=== PATIENT | male | born 1955 | race Two or more races ===

== ENCOUNTER → 2024-03-05 | Outpatient (CLI) | payer OTHER, MEDICAID, SELFPAY ==
[2024-03-05 11:44] LABS: Prostate Specific Antigen 1.29 ng/mL (0-4.00)
== END | disposition home or self-care (01) ==
PROVIDERS: PCP Nurse Practitioner Family; Referring Provider Urology; Visit Provider Urology
DX: N40.1 Benign prostatic hyperplasia with lower urinary tract symptoms (principal)
CPT/HCPCS: 36415; 84153

== ENCOUNTER → 2024-03-05 | Outpatient (BNVA) | payer OTHER, MEDICAID, SELFPAY | END | disposition home or self-care (01) | PROVIDERS: PCP Physician Assistant; Referring Provider Physician Assistant; Visit Provider Urology | DX: N40.1 Benign prostatic hyperplasia with lower urinary tract symptoms (principal); N13.8 Other obstructive and reflux uropathy; R39.15 Urgency of urination; R35.1 Nocturia | CPT/HCPCS: 81003; 99212; G0463 ==

== ENCOUNTER → 2024-04-09 | Outpatient (BNVA) | payer OTHER, MEDICAID, SELFPAY | END | disposition home or self-care (01) | PROVIDERS: PCP Physician Assistant; Referring Provider Physician Assistant; Visit Provider Urology | DX: N40.1 Benign prostatic hyperplasia with lower urinary tract symptoms (principal); R39.12 Poor urinary stream | CPT/HCPCS: 51741; 51798 ==

== ENCOUNTER → 2024-04-28 | Outpatient (CLI) | payer OTHER, MEDICAID, SELFPAY ==
--- NOTE | 2024-04-28 14:00 | XR_ITS ---
Examination: PA lateral chest 2 views Technique: Upright PA lateral chest 2 views Exam date and time: April 28, 2024 1411 hrs. Indications: Chest and back pain beginning 4 days ago Findings: No significant cardiac enlargement Ectatic thoracic aorta No pneumonia or pulmonary edema Moderate osteopenia Minor atelectasis in the right middle lobe on the lateral view Impression: Minor atelectasis in the right middle lobe on the lateral view
== END | disposition home or self-care (01) ==
LOC: CDIM 13:47
PROVIDERS: PCP Physician Assistant; Referring Provider Physician Assistant; Visit Provider Physician Assistant
DX: J98.11 Atelectasis (principal)
CPT/HCPCS: 71046

== ENCOUNTER → 2024-05-04 | Outpatient (BNVA) | payer OTHER, MEDICAID, SELFPAY | END | disposition home or self-care (01) | PROVIDERS: PCP Physician Assistant; Referring Provider Physician Assistant; Visit Provider Urology | DX: N40.1 Benign prostatic hyperplasia with lower urinary tract symptoms (principal); N13.8 Other obstructive and reflux uropathy; I10 Essential (primary) hypertension; M79.7 Fibromyalgia | CPT/HCPCS: 76872 ==

== ENCOUNTER → 2024-05-26 | Outpatient (CLI) | payer OTHER, MEDICAID, SELFPAY ==
--- NOTE | 2024-05-26 14:00 | XR_ITS ---
Examination: CT chest, without intravenous contrast. Sagittal and coronal 2-D reconstructions. Exam date and time: May 26, 2024 1439 hours INDICATIONS: Diagnosis aortic ectasia unspecified chest discomfort 3 years CTDI:vol (mGy) 15.2 DLP: (mGycm) 538 Technique: Multiple 3.0 mm axial sections of the chest to been obtained. Bone and lung density settings are obtained. Sagittal and coronal 2-D reconstructions have been obtained. Low dose protocols were performed. One or more of the following dose reduction techniques were used; automated exposure control, adjustment of the mA and/or KV according to patient size, use of iterative reconstruction technique. Findings: 10 mm right thyroid nodule No thoracic aortic enlargement or significant ectasia Pulmonary artery segments are not enlarged Heavy calcification left anterior descending coronary artery No paratracheal tracheobronchial or bronchopulmonary adenopathy No pneumonia or pulmonary edema or pleural disease No visualized liver or splenic lesion No pancreatic mass IMPRESSION: 10 mm right thyroid nodule Negative for thoracic aortic aneurysm or ectasia
== END | disposition home or self-care (01) ==
LOC: CCTX 13:59
PROVIDERS: Referring Provider Nurse Practitioner Family; Visit Provider Nurse Practitioner Family
DX: E04.1 Nontoxic single thyroid nodule (principal)
CPT/HCPCS: 71250

== ENCOUNTER → 2024-06-08 | Outpatient (CLI) | payer OTHER, MEDICAID, SELFPAY ==
--- NOTE | 2024-06-08 | XR_ITS ---
Examination: Bone densitometry Date and time of exam:June 08, 2024 1324 hours INDICATIONS: 69-year-old male with diagnosis age related osteoporosis, family history mother hip fracture or osteoporosis, personal history rheumatoid arthritis Technique: Lumbar spine and hip total bone mineralization values of an calculated. Peak reference and age match control results have been displayed. Findings: Lumbar spine total bone mineralization is0.867 gm/cm2. This is 2.0 standard deviations below peak reference. This is 1.2 standard deviations below age-matched controls. Hip total bone mineralization is 0.897 gm/cm2 This is 1.2 standard deviations below peak reference. This is 0.6 standard deviations below age-matched controls Impression: There is osteopenia based on lumbar spine measurements. There is osteopenia based on hip measurements
== END | disposition home or self-care (01) ==
LOC: CDIM 12:45
PROVIDERS: PCP Nurse Practitioner Family; Referring Provider Nurse Practitioner Family; Visit Provider Nurse Practitioner Family
DX: M85.89 Other specified disorders of bone density and structure, multiple sites (principal)
CPT/HCPCS: 77080

== ENCOUNTER → 2024-06-19 | Outpatient (CLI) | payer OTHER, MEDICAID, SELFPAY ==
--- NOTE | 2024-06-19 13:30 | XR_ITS ---
Examination: Thyroid sonography complete TECHNIQUE: Grayscale sonographic images thyroid lobes are carful analysis Exam date and time: June 19, 2024 1402 hours INDICATIONS: 10 mm right thyroid nodule on CT chest examination May 26, 2024. FINDINGS: Right thyroid 4.6 x 2.1 x 1.4 cm Lower pole nodule 5 x 4 mm, 15 x 13 mm Left thyroid 4.1 x 1.8 x 1.7 cm Upper pole cyst 3 x 2 mm IMPRESSION: Right thyroid lower pole nodules as above Consider ultrasound-guided fine-needle aspiration of the vascular lower pole right thyroid nodule 15 x 11 x 13 mm
== END | disposition home or self-care (01) ==
PROVIDERS: PCP Physician Assistant; Referring Provider Physician Assistant; Visit Provider Physician Assistant
DX: E04.2 Nontoxic multinodular goiter (principal)
CPT/HCPCS: 76536

== ENCOUNTER → 2024-08-07 | Outpatient (CLI) | payer OTHER, MEDICAID, SELFPAY ==
[2024-08-06 13:12] LABS: Partial Thromboplastin Time 25.6 Seconds (22.0-36.0); Prothrombin Time 11.2 Seconds (9.0-12.2)
--- NOTE | 2024-08-07 08:00 | XR_ITS ---
Examination: Ultrasound-guided fine needle percutaneous aspiration thyroid nodule, right. Thyroid sonography, limited Exam date and time: 08/07/2024, 8:50 AM. Technique: A timeout was completed verifying correct patient, procedure, site, positioning and special equipment if applicable. The patient was placed in supine position for the thyroid fine needle percutaneous aspiration The patient's right neck neck was prepped and draped in sterile fashion. Maximum barrier sterile technique, hand hygiene, ultrasound sterile technique. 1% lidocaine was used to anesthetize the skin and subcutaneous tissues to the patient's right thyroid nodule. Multiple fine needle aspirations were performed using 25-gauge needles and multiple thyroid specimens placed in preservative according to the [facility] protocol. Specimens appears satisfactory. The attending radiologist was present for the entire procedure. Estimated blood loss 3 cc. The patient tolerated the procedure well and there were no complications. Impression: Successful ultrasound-guided fine-needle percutaneous aspiration thyroid nodule, right.
== END | disposition home or self-care (01) ==
PROVIDERS: Radiology Diagnostic Radiology; PCP Nurse Practitioner Family; Referring Provider Nurse Practitioner Family; Visit Provider Nurse Practitioner Family
DX: E07.89 Other specified disorders of thyroid (principal); Z01.812 Encounter for preprocedural laboratory examination
CPT/HCPCS: 10005; 36415; 85025; 85610; 85730

== ENCOUNTER → 2024-08-10 | Outpatient (BNVA) | payer OTHER, MEDICAID, SELFPAY | END | disposition home or self-care (01) | PROVIDERS: PCP Physician Assistant; Referring Provider Physician Assistant; Visit Provider Urology | DX: N40.1 Benign prostatic hyperplasia with lower urinary tract symptoms (principal); N13.8 Other obstructive and reflux uropathy; I10 Essential (primary) hypertension; E66.9 Obesity, unspecified; Z68.32 Body mass index [BMI] 32.0-32.9, adult | CPT/HCPCS: 81003; 99212; G0463 ==

== ENCOUNTER 2024-08-13 22:36 | Emergency (ER) | payer OTHER, MEDICAID, SELFPAY ==
[2024-08-13 22:37] VITALS: BMI 33.3
[2024-08-13 22:50] VITALS: BP 130/80; PULSE 68; RESP 18; TEMP 36.8; O2SAT 97
--- NOTE | 2024-08-13 23:03 | XR_ITS ---
Examination: Knee, left 3 views Technique: AP oblique lateral left knee 3 views Exam date and time: August 13, 2024 11:22 PM Indications: Patient fell today with injury to the knee, knee pain. Findings: No acute fracture No dislocation No foreign body Impression: No acute fracture
--- NOTE | 2024-08-13 23:03 | XR_ITS ---
Examination: Tibia-Fibula, left , 2 views Technique: Tibia-fibula AP lateral 2 views Date and time of exam: July at 19 hours Indications: Patient fell today with injury to the lower leg, left lower leg pain Findings: No fracture or dislocation No foreign body Impression: No fracture or dislocation
[2024-08-14] MEDS: cephALEXin 250 MG CAPSULE 500 MG PO
[2024-08-14] MEDS: DIPHTH,PERTUSS(ACELL),TET VAC 0.5 ML SYR- ADULT IMi
--- NOTE | 2024-08-14 03:21 | EDNOTE_ITS ---
Lower Extremity Injury RME/HPI General Chief Complaint: Fall Stated Complaint: FALL, LEFT LEG PAIN AND LACERATIONS Time Seen by Provider: 08/13/24 23:02 Arrival date/time: 08/13/24 22:36 69M with history of HTN presents to ED with LLE pain and laceration after trip and fall forward. Patient denies hitting head, neck, chest, ab, and back, as well as dizziness, N/V, AMS, seizures, and vision changes. Patient has not had a tetanus shot in the past 5 years. Limitations: no limitations Related Data Home Medications ?Medication ?Instructions ?Recorded ?Confirmed alfuzosin 10 mg tablet,extended 10 mg PO QDAY 10/10/17 08/10/24 release 24 hr acetaminophen 650 mg 2 tab PO Q8HR PRN Pain 11/2908/10/24 tablet,extended release (Arthritis Pain Relief (acetaminophen) ER) Held on 11/30/21. Instructions: Resume on 12/07/21. yvefbqv-qrslmetrcsjnl-nmdcaqcp 250 1 tab PO Q6H PRN mi graine 11/29/21 08/10/24 mg-250 mg-65 mg tablet (Excedrin Migraine) azelastine 0.05 % eye drops 1 drp ophthalmic (eye) QDA Y 11/29/21 08/10/24 fluticasone propionate 50 1 ea intranasal QDAY 2 08/10/24 mcg/actuation nasal spray,suspension gabapentin 400 mg capsule 1 cap PO TID 11/29/21 alfuzosin 10 mg tablet,extended 10 mg PO QDAY 08/10/24 08/10/24 release 24 hr (Uroxatral) famotidine 40 mg tablet 40 mg PO QDAY 08/10/2408/10 Previous Rx's ?Medication ?Instructions ?Recorded cephalexin 500 mg capsule 500 mg PO TID 7 days #21 cap s 08/14/24 Allergies Allergy/AdvReac Type Severity Reaction Status Date / Time No Known Allergies Allergy Verified 08/13/24 22:37 Review of Systems Review of Systems Systems Reviewed: All systems reviewed, normal except as documented Constitutional Constitutional: Reports system reviewed and no additional complaints, except as documented, Denies fever(s) and Denies headache(s) ENT Ears, Nose, Mouth, and Throat: Denies disequilibrium and Denies headache(s) Cardiovascular Cardiovascular: Reports system reviewed and no additional complaints, except as documented, Denies chest pain and Denies dyspnea Respiratory Respiratory: Reports system reviewed and no additional complaints, except as documented, Denies cough and Denies dyspnea Gastrointestinal Gastrointestinal: Reports system reviewed and no additional complaints, except as documented, Denies abdominal pain, Denies nausea and Denies vomiting Musculoskeletal Musculoskeletal: Reports as per HPI and Reports arthralgias Integumentary/Breasts Skin/Breast: Reports as per HPI and Reports skin pain Neurologic Neurologic: Reports system reviewed and no additional complaints, except as documented, Denies confusion, Denies disequilibrium and Denies headache(s) Psychiatric Psychiatric: Denies confusion Past Medical History Past Medical History NEUROLOGIC: Positive Neurological Disorders and Migraine; Negative Seizures CARDIAC: Positive Hypertension; Negative Cardiac Disorders or Congestive Heart Failure RESPIRATORY: Negative Chronic Obstructive Pulmonary Disease (COPD) GASTROINTESTINAL: Positive Gastrointestinal Disorders and Hiatal Hernia (RIGHT INGUINAL HERNIA); Negative Hepatitis GENITOURINARY: Positive Genitourinary Disorders and Benign Prostatic Hyperplasia; Negative Renal Disease MUSCULOSKELETAL: Positive Fibromyalgia; Negative Musculoskeletal Disorders ENDOCRINE: Negative Endocrine Disorders, Diabetes Mellitus Type 1 or Diabetes Mellitus Type 2 HEMATOLOGIC: Negative Blood Disorders OTHER HISTORY: Negative Hospitalization, Autoimmune Disease, Shingles, Falls, Blood Transfusions, Blood Transfusion Reaction, Anesthesia Reactions, Chemotherapy, Radiation Therapy, MRSA, VRSA, Chicken Pox, Measles, Mumps or Cancer Family History FAMILY HISTORY: Positive Family Cardiac Disorders (HTN, CHOLESTEROL); Negative Family Psychiatric Problems, Family Respiratory Disorders, Family Gastrointestinal Problems, Family Cancer, Family Surgery (HERNIA REPAIR) or Family Anesthesia Reaction Surgical History SURGICAL: Positive Abdominal Surgery; Negative Cardiac Surgery, Endocrine Surgery or Ear Surgery Social History SMOKING STATUS: Never smoker ED Exam General Limitations: Present no limitations General appearance: Present alert and in no apparent distress Head Head exam: Present atraumatic Eye Eye exam: Present normal appearance, PERRL and EOMI ENT ENT exam: Present normal exam, normal oropharynx and mucous membranes moist Neck Neck exam: Present normal inspection, full ROM and trachea midline Chest Chest inspection: Present normal inspection and symmetric chest wall rise Respiratory Respiratory exam: Present normal lung sounds bilaterally Cardiovascular Cardiovascular exam: Present regular rate, normal rhythm and normal heart sounds Abdominal Exam Abdominal exam: Present soft and normal bowel sounds Extremities Exam Extremities exam: Present full ROM Expanded Lower Extremity Exam Lower leg exam: Present full ROM (L), tenderness and abrasion Back Exam Back exam: Present normal inspection and full ROM Neurological Exam Neurological exam: Present alert, oriented X3 and CN II-XII intact Psychiatric Psychiatric exam: Present normal affect and normal mood Skin Skin exam: Present warm, dry, intact and normal color Course Quality Measures none Orders Category Date Time Status Crutches .NOW Care 08/14/24 00:28 Completed Wound Care NOW Care 08/13/24 23:03 Completed XR knee LT 3V Stat Exams 08/13/24 23:03 Completed XR tibia fibula LT 2V Stat Exams 08/13/24 23:03 Completed TET,DIP/PERT AC (Adult)-Tdap [Boostrix Adult (Tdap) Med 08/13/24 23:03 Discontinued Vacc] 0.5 ml IMI .ONCE ONE cephALEXin [Keflex] Med 08/13/24 23:41 Discontinued 500 mg PO X1 ONE Vital Signs Vital signs: Vital Signs Temperature 98.2 F 08/13/24 22:50 Pulse Rate 68 08/13/24 22:50 Respiratory Rate 18 08/13/24 22:50 Blood Pressure 130/80 08/13/24 22:50 Pulse Oximetry (%) 97 08/13/24 22:50 Oxygen Delivery Method Room Air 08/13/24 22:50 O2 at 97% on RA and WNLs Extremity Injury, Lower MDM Narrative MDM Narrative:: 69M with history of HTN presents to ED with LLE pain and laceration after trip and fall forward. Patient denies hitting head, neck, chest, ab, and back, as well as dizziness, N/V, AMS, seizures, and vision changes. Patient has not had a tetanus shot in the past 5 years. Physical exam reveals 2 skin abrasions/partial avulsions on LLE with surrounding redness and bruising. Some tenderness. Normal WOB. Patient is afebrile, calm, and alert. XR no fx. Wounds cleaned/irrigated and bandaged. Tdap and ABX given. Patient data External records reviewed:: [facility] previous records Clinical information provided by:: patient Social determinants that could affect healthcare access:: none Patient has the following chronic illnesses:: HTN How is presenting disease/condition affected by chronic disease/condition?: uneffected by Evaluation data The following diagnostics were reviewed and interpreted by me:: radiology exam(s) Lab and/or radiology exams considered but not ordered:: ordered Interpretation Summary: above Medications / Prescriptions Medications or Prescriptions considered but not ordered:: ordered Medication administrations:: Medication Administration History Discontinued Medications Cephalexin HCl (Cephalexin 250 Mg Capsule) 500 mg PO X1 ONE Stop: 08/13/24 23:42 Last Admin: 08/14/24 00:00 Dose: 500 mg Documented By: KAYLA Diphtheria/Tetanus/Acell Pertussis (Diphth,Pertuss(Acell),Tet Vac 0.5 Ml Syr- Adult) 0.5 ml IMi .ONCE ONE Stop: 08/13/24 23:04 Last Admin: 08/14/24 00:00 Dose: 0.5 ml Documented By: KAYLA above Consultations Consultation(s) initiated? (list below): No Diagnosis Extremity Injury, Lower Differential Diagnosis: ankle sprain and strain, acute internal derangement of knee, puncture wound of foot, fracture of toe, ankle fracture and other (contusion of soft tissue and skin tear) Most likely diagnosis given after review of the tests above:: contusion of soft tissue and skin tear Admission Indicated Admission indicated?: not indicated Admission Request Was there a request for admission?: No Disposition Plan Disposition Plan: Discharge Discharge Attestation Discharge Attestation: The patient and all family members were given an opportunity to ask questions and understood the discharge instructions. Discharge instructions specifically effects, indications for sooner follow up or return to the emergency department, and the expected course of current diagnosis. Patient condition: Stable Discharge Plan Plan Patient Disposition: HOME (Self Care) Disposition Comment: Stable Prescriptions/Referrals Prescriptions/Med Rec: New cephalexin 500 mg capsule 500 mg PO TID 7 Days Qty: 21 0RF No Action alfuzosin 10 mg tablet extended release 24 hr 10 mg PO QDAY famotidine 40 mg tablet 40 mg PO QDAY alfuzosin [Uroxatral] 10 mg tablet extended release 24 hr 10 mg PO QDAY Rx Instructions: administer after the same meal each day azelastine 0.05 % drops 1 drp OPHTHALMIC (EYE) QDAY Patient Comments: INSTILL 1 DROP INTO AFFECTED EYE(S) twice a day if needed for allergies gabapentin 400 mg capsule 1 cap PO TID Patient Comments: take 1 capsule by mouth three times a day acetaminophen [Arthritis Pain Relief (acetam)] 650 mg tablet extended release 2 tab PO Q8HR PRN (Reason: Pain) Patient Comments: take 2 tablets by mouth every 8 hours if needed for pain fluticasone propionate 50 mcg/actuation spray,suspension 1 ea INTRANASAL QDAY Patient Comments: instill 1 spray into each nostril once daily Excedrin Migraine 250-250-65 mg Tablet 1 tab PO Q6H PRN (Reason: migraine) Problem List Clinical Impression: Skin tear, Contusion of soft tissue Patient/Caregiver Discharge Instructions Education Materials: ED Contusion, Lower Extremity, ED Skin Avulsion Additional Instructions: Please follow-up with PCP within 24-48 hours and return immediately if symptoms worsen. If problem persists, recommend outpatient PT and/or MRI follow-up. In the meantime, rest, use ice/heat, and/or compression. Print Language: Namibian Stand Alone Forms: Patient Portal Info Letter JESS/ALEKSANDRA Supervising Physician JESS/ALEKSANDRA Supervising Physician: Dr. Yuan
== END 2024-08-14 00:52 | disposition home or self-care (01) ==
LOC: SERX 08-14 00:18
PROVIDERS: Emergency Provider Emergency Medicine; PCP Family Medicine
DX: S81.802A Unspecified open wound, left lower leg, initial encounter (principal); W01.0XXA Fall on same level from slipping, tripping and stumbling without subsequent striking against object, initial encounter; Z23 Encounter for immunization
CPT/HCPCS: 73562; 73590; 90471; 90715; 99283; A9270

== ENCOUNTER → 2024-09-01 | Outpatient (CLI) | payer OTHER, MEDICAID, SELFPAY ==
--- NOTE | 2024-09-01 07:00 | XR_ITS ---
Exam: MRI knee without contrast, left INDICATIONS: Patient fell August 13, 2024 with injury to the knee, persistent knee pain Date and time of exam: September 01, 2024 0802 hours Technique: Multiple axial, coronal, and sagittal sections on the knee have been obtained. T2-Weighted sagittal, fat-suppressed images, TR 3,500, TE 62, T2 weighted coronal fat-saturated images, TR 3,500, TE 62 Proton density sagittal sections, TR 1800, TE 31. T-1 weighted coronal images, TR 524, TE 13.0 Findings: Medial meniscus anterior horn intact. Medial meniscus, body intra substance degeneration. Posterior horn medial meniscus intrasubstance degeneration. Lateral meniscus anterior horn horizontal linear tear Lateral meniscus, body is intact Posterior horn lateral meniscus horizontal linear tear communicating inferior articular surface near the inner margin Anterior cruciate ligament moderate sprain. Posterior cruciate ligament appears intact. Knee effusion is small. Quadriceps and patellar tendons appear intact. There is no evidence of tendinosis. Inflammatory change or fracture of Hoffa's fat pad is not seen. Medial patellar facet demonstrates severe thinning. Lateral patellar facet cartilage demonstrates severe thinning. Trochlear cartilage demonstrates severe thinning. Marrow signal adequate. Medial collateral ligament appears intact. No meniscocapsular separation is seen. Illiotibial band and fibular collateral ligament are intact. Biceps femoris tendons appear intact. Medial femoral condylar articular cartilage demonstrates severe thinning. Lateral femoral condylar articular cartilage demonstratessevere thinning. Tibial plateau cartilage demonstrates severe thinning. Impression: Intrasubstance degeneration body and posterior horn medial meniscus Tears of the lateral meniscus as above Moderate sprain anterior cruciate ligament
--- NOTE | 2024-09-01 07:30 | XR_ITS ---
Examination: MRI left lower leg, without contrast Date and time of exam: September 01, thousand 25, 0802 hours INDICATIONS: Injury to the lower leg after fall August 13, 2024 with persistent leg pain Technique: Multiple axial sagittal and coronal images of the left lower leg have been obtained with the Siemens high-resolution 1.5 Sheila MRI scanner. Images obtained include T2-weighted fat-suppressed sagittal sections, TR 3500, TE 46, T2 weighted coronal fat suppressed images, TR 3050, TE 84, T2-weighted transverse fat suppressed images, TR 3260, TE 63, proton density transverse images, TR 4720 TE 46, and T1 weighted coronal images, TR 560, TE 13. Findings: No occult fracture bone contusion or marrow edema Cortex of the tibia and fibula intact Achilles tendon appears intact No muscle hemorrhage Plantaris tendon tendon is intact IMPRESSION: No occult fracture, bone contusion, marrow edema or avascular necrosis
== END | disposition home or self-care (01) ==
LOC: SMRI 07:27
PROVIDERS: Referring Provider Nurse Practitioner Family; Visit Provider Nurse Practitioner Family
DX: S83.282A Other tear of lateral meniscus, current injury, left knee, initial encounter (principal); S83.512A Sprain of anterior cruciate ligament of left knee, initial encounter; M23.322 Other meniscus derangements, posterior horn of medial meniscus, left knee; M23.332 Other meniscus derangements, other medial meniscus, left knee; W19.XXXA Unspecified fall, initial encounter
CPT/HCPCS: 73718; 73721

== ENCOUNTER → 2024-09-10 | Outpatient (CLI) | payer OTHER, SELFPAY ==
--- NOTE | 2024-09-10 14:51 | XR_ITS ---
Examination: Tibia-Fibula, left , 2 views Technique: Tibia-fibula AP lateral 2 views Date and time of exam: September 10, 2024 1511 hours INDICATIONS: Patient fell yesterday with injury to the lower leg, lower leg pain. FINDINGS: No fracture or dislocation No foreign body IMPRESSION: No fracture or dislocation
== END | disposition home or self-care (01) ==
PROVIDERS: PCP Family Medicine; Referring Provider Nurse Practitioner Family; Visit Provider Nurse Practitioner Family
DX: S81.802D Unspecified open wound, left lower leg, subsequent encounter (principal); W19.XXXD Unspecified fall, subsequent encounter
CPT/HCPCS: 73590

== ENCOUNTER → 2024-09-22 | Outpatient (CLI) | payer OTHER, SELFPAY ==
--- NOTE | 2024-09-22 15:21 | XR_ITS ---
Termination: Ultrasound soft tissue extremity right leg TECHNIQUE: Grayscale sonographic images soft tissue right leg Date and time: September 22, 2024 1526 hours INDICATIONS: Patient fell 6 weeks ago with lump in the right calf FINDINGS: Cystic area at the area concern upper calf 9 x 6 x 6 mm IMPRESSION: Findings consistent with small hematoma in the soft tissue at the area concern Consider MRI lower leg without contrast follow-up
== END | disposition home or self-care (01) ==
PROVIDERS: PCP Family Medicine; Referring Provider Nurse Practitioner Family; Visit Provider Nurse Practitioner Family
DX: S89.91XA Unspecified injury of right lower leg, initial encounter (principal); W19.XXXA Unspecified fall, initial encounter
CPT/HCPCS: 76882

== ENCOUNTER 2024-10-08 08:12 | Outpatient (AMB) | payer OTHER, SELFPAY ==
[2024-10-08 08:36] VITALS: BP 108/70; PULSE 68; RESP 18; TEMP 36.3; O2SAT 96; BMI 33.0
--- NOTE | 2024-10-08 08:36 | ORTHONT_ITS ---
Vital signs 10/08/24 08:36 Height 1.65 m Height Method Stated Weight 89.953 kg Weight Measurement Method Standing Scale BMI 33.0 BP 108/70 Blood Pressure Source Automatic Cuff Blood Pressure Location Right Upper Arm Position Sitting Respiration 18 Pulse 68 Pulse Source Monitor Temp 97.3 F Temp Source Temporal Artery Scan Pulse Oximetry (%) 96 Oxygen Delivery Method Room Air Med/Allergies Allergies & Medications Allergies No Known Allergies Allergy (Verified 10/08/24 08:37) Medication Reconciliation acetaminophen 650 mg tablet,extended release (Arthritis Pain Relief (acetaminophen) ER) 2 tab PO Q8HR PRN Pain 11/29/21 [History Confirmed 10/08/24] Held on 11/30/21. Instructions: Resume on 12/07/21. azhusct-npkwsiupngdtc-rvmkwieu 250 mg-250 mg-65 mg tablet (Excedrin Migraine) 1 tab PO Q6H PRN migraine 11/29/21 [History Confirmed 10/08/24] fluticasone propionate 50 mcg/actuation nasal spray,suspension 1 ea intranasal QDAY 11/29/21 [History Confirmed 10/08/24] gabapentin 400 mg capsule 1 cap PO TID 11/29/21 [History Confirmed 10/08/24] famotidine 40 mg tablet 40 mg PO QDAY 08/10/24 [History Confirmed 10/08/24] atorvastatin 40 mg tablet 40 mg PO QDAY 10/08/24 [History Confirmed 10/08/24] meloxicam 7.5 mg tablet 7.5 mg PO QDAY #45 tabs 10/08/24 [Rx] montelukast 10 mg tablet 10 mg PO QDAY 10/08/24 [History Confirmed 10/08/24] omeprazole 40 mg capsule,delayed release 40 mg PO QDAY 10/08/24 [History Confirmed 10/08/24] propranolol 40 mg tablet 40 mg PO BID 10/08/24 [History Confirmed 10/08/24] Assessment and Plan Advanced Care Planning Discussion Advance care planning discussed with:: patient Office Procedures GNS Level of Care Nursing/Assessment Patient Status: Established Patient Nursing Assessment/Reassesment: Medication Reconciliation, Update PMH in EMR and Vital Signs Coordination of Care: Complex Care and Chronic Disease 1-5, Education Complex Pt/Fam, Consent,records obtained, informed consent, Lab and Imaging orders, Results/Orders obtained and Staff clarify orders Special Needs: Language special needs Established Patient Charge Established Patient Point Assignment: 110 Established Patient Point Charge: EP Level 3 (80-115) MA Intake Visit Data Collection New Patient or Established: Established Patient (seen at [facility] within 3 years) Reason for Visit:: BILATERAL KNEE PAIN Seen by Clinical Staff ONLY (RN/MA): No Verbal consent obtained for Telemed visit?: No [employer] Required: Yes PCP or OBGYN visit in last 3 months: Yes Hx Now: No Do You Feel Safe at Home: Yes Authorities Contacted: N/A Questionairres Past Medical History Past Medical History Have you ever been diagnosed with any of the following: Neurological Problems Seizures: No Migraine: Yes Cardiology Problems Congestive Heart Failure: No Hypertension: Yes Respiratory Problems Chronic Obstructive Pulmonary Disease (COPD): No Stomache/Intestinal Problems Hepatitis: No Hiatal Hernia: Yes (RIGHT INGUINAL HERNIA) Genital/Urinary Problems Renal Disease: No Benign Prostatic Hyperplasia: Yes Musculoskeletal Problems Fibromyalgia: Yes Endocrine Problems Diabetes Mellitus Type 1: No Diabetes Mellitus Type 2: No Other Problems Hospitalization: No Shingles: No Falls: No Blood Transfusions: No Blood Transfusion Reaction: No Anesthesia Reactions: No Chemotherapy: No Radiation Therapy: No MRSA: No VRSA: No Chicken Pox: No Measles: No Mumps: No Cancer: No Subjective Visit Visit for: new patient and knee Immunization / Flu Flu Vaccine in the Last 12 Months: No Flu Vaccine Exclusion Criteria: No Exclusion Criteria History of Present Illness Chief complaint: Bilsteral knee pain, patient had an accident fell down stairs and cut open his knee, the wound has yet to fully heal. denies pus or drainage. Date of injury / onset of symptoms: 08/13 Personal History Red flag PMH: Blood thinners (aspirin 81mg) and BMI BMI Counceling provided: No Pain Pain level (0-10): 6 Pain duration: comes and goes Pain location: inside (medial), outside (lateral), anterior and posterior Pain quality: sharp, dull and aching Pain timing: increases with activity and stairs Associated signs & symptoms: none Ambulatory data Ambulatory device: none Treatments Number of previous injections: 1 Improvement with previous injections: No Improvement with PT: No Improvement with NSAIDS: yes (tylenol) Review of Systems Review of Systems: All systems negative unless otherwise noted in HPI.
--- NOTE | 2024-10-08 08:40 | ORTHONT_ITS ---
Vital signs 10/08/24 08:36 10/08/24 08:42 Height 1.65 m Height Method Stated Weight 89.953 kg Weight Measurement Method Standing Scale BMI 33.0 BP 108/70 108/70 Blood Pressure Source Automatic Cuff Blood Pressure Location Right Upper Arm Position Sitting Respiration 18 18 Pulse 68 68 Pulse Source Monitor Temp 97.3 F 97.3 F Temp Source Temporal Artery Scan Pulse Oximetry (%) 96 96 Oxygen Delivery Method Room Air Med/Allergies Allergies & Medications Allergies No Known Allergies Allergy (Verified 10/08/24 08:37) Medication Reconciliation acetaminophen 650 mg tablet,extended release (Arthritis Pain Relief (acetaminophen) ER) 2 tab PO Q8HR PRN Pain 11/29/21 [History Confirmed 10/08/24] Held on 11/30/21. Instructions: Resume on 12/07/21. [id number]-[id number]-hbfevfwv 250 mg-250 mg-65 mg tablet (Excedrin Migraine) 1 tab PO Q6H PRN migraine 11/29/21 [History Confirmed 10/08/24] fluticasone propionate 50 mcg/actuation nasal spray,suspension 1 ea intranasal QDAY 11/29/21 [History Confirmed 10/08/24] gabapentin 400 mg capsule 1 cap PO TID 11/29/21 [History Confirmed 10/08/24] famotidine 40 mg tablet 40 mg PO QDAY 08/10/24 [History Confirmed 10/08/24] atorvastatin 40 mg tablet 40 mg PO QDAY 10/08/24 [History Confirmed 10/08/24] meloxicam 7.5 mg tablet 7.5 mg PO QDAY #45 tabs 10/08/24 [Rx] montelukast 10 mg tablet 10 mg PO QDAY 10/08/24 [History Confirmed 10/08/24] omeprazole 40 mg capsule,delayed release 40 mg PO QDAY 10/08/24 [History Confirmed 10/08/24] propranolol 40 mg tablet 40 mg PO BID 10/08/24 [History Confirmed 10/08/24] Exam Exam Patient is in no acute distress and is cooperative with the examination today. Breathing is nonlabored. Patient has a normal mood and affect. Bilateral extremities were evaluated and demonstrates sensation intact to light touch. Palpable pedal pulses are present. No significant edema is present. Bilateral hips were examined. The patient has no pain with log roll of the hips. Internal rotation to 30 degrees and external rotation to 30 degrees is painless. Negative FADIR. Right knee was examined today. The right knee is in reasonable alignment. Range of motion from 0-120 degrees. Knee is stable to varus and valgus as well as AP translation with <5mm. Patient has a negative McMurrays. There is no pain with patellofemoral compression and no crepitus noted. The knee is nontender to palpation. Left knee was examined today. The left knee is in varus alignment. Range of motion from 0-115 degrees. Knee is stable to varus and valgus as well as AP translation with <5mm. Patient has a negative McMurrays. There is no pain with patellofemoral compression and no crepitus noted. The knee is tender to palpation medially. He has skin abrasions below his tibial tubercle and on the distal one third tibia area. There appears to be skin abrasions that is superficial. It does not look infected and options relatively clean. Is very w et as there is a lot of antibiotic ointment on it Assessment and Plan Problem List (1) Arthritis of left knee: Status: Acute Plan: Patient is a 69-year-old male with left knee pain and left knee arthritis. He also has superficial skin abrasions. We recommend that he stop his Neosporin cream as this can impair wound healing. The knee does not look infected at all and looks very clean. We will get weightbearing x-rays ordered We will see him back after his x-rays are done and likely for injections at the next visit Office Procedures GNS Level of Care Nursing/Assessment Patient Status: Established Patient Nursing Assessment/Reassesment: Medication Reconciliation, Update PMH in EMR and Vital Signs Coordination of Care: Complex Care and Chronic Disease 1-5, Education Complex Pt/Fam, Consent,records obtained, informed consent, Lab and Imaging orders, Results/Orders obtained and Staff clarify orders Special Needs: Language special needs Established Patient Charge Established Patient Point Assignment: 110 Established Patient Point Charge: EP Level 3 (80-115) Questionairres Past Medical History Past Medical History Have you ever been diagnosed with any of the following: Neurological Problems Seizures: No Migraine: Yes Cardiology Problems Congestive Heart Failure: No Hypertension: Yes Respiratory Problems Chronic Obstructive Pulmonary Disease (COPD): No Stomache/Intestinal Problems Hepatitis: No Hiatal Hernia: Yes (RIGHT INGUINAL HERNIA) Genital/Urinary Problems Renal Disease: No Benign Prostatic Hyperplasia: Yes Musculoskeletal Problems Fibromyalgia: Yes Endocrine Problems Diabetes Mellitus Type 1: No Diabetes Mellitus Type 2: No Other Problems Hospitalization: No Shingles: No Falls: No Blood Transfusions: No Blood Transfusion Reaction: No Anesthesia Reactions: No Chemotherapy: No Radiation Therapy: No MRSA: No VRSA: No Chicken Pox: No Measles: No Mumps: No Cancer: No Subjective History of Present Illness Chief complaint: left knee pain Patient is a 69-year-old male with left knee pain. He had a fall 2 months ago with abrasions on his lower tibia and below his knee. He was reporting Neosporin cream on it has not been healing. He denies any fever. He reports he has been having left knee pain for several months as well. It is on the medial aspect of his knee where he points to it Review of Systems Review of Systems: All systems negative unless otherwise noted in HPI.
[2024-10-08 08:42] VITALS: BP 108/70; PULSE 68; RESP 18; TEMP 36.3; O2SAT 96
--- NOTE | 2024-10-08 08:42 | XR_ITS ---
Examination: Bilateral AP knees single view Left knee PA, lateral, axial 3 views TECHNIQUE: Bilateral AP knees standing single view Left knee PA standing flexion, left knee standing lateral, left knee axial 3 views total 4 views Date and time: October 08, 2024 0856 hours INDICATIONS: Patient fell August 13, 2024 with injury to the knees, left-sided knee pain. FINDINGS: Moderate osteopenia Mild narrowing medial lateral joint spaces right knee Moderate narrowing lateral joint space left knee Moderate osteoarthritis left patellofemoral joint IMPRESSION: No fractures Moderate narrowing lateral joint space left knee Moderate osteoarthritis left patellofemoral joint
== END 2024-10-08 08:44 | disposition home or self-care (01) ==
PROVIDERS: PCP Family Medicine; Referring Provider Family Medicine; Supervising Provider Orthopaedic Surgery Adult Reconstructive Orthopaedic Surgery; Visit Provider Orthopaedic Surgery Adult Reconstructive Orthopaedic Surgery
DX: M17.12 Unilateral primary osteoarthritis, left knee (principal); M25.562 Pain in left knee; S80.819A Abrasion, unspecified lower leg, initial encounter; W10.9XXA Fall (on) (from) unspecified stairs and steps, initial encounter; I10 Essential (primary) hypertension
CPT/HCPCS: 73564; 99213; G0463

== ENCOUNTER → 2024-10-23 | Outpatient (CLI) | payer OTHER, SELFPAY | END | disposition home or self-care (01) | PROVIDERS: PCP Nurse Practitioner Family; Referring Provider Nurse Practitioner Family; Visit Provider Physician Assistant | DX: S81.802A Unspecified open wound, left lower leg, initial encounter (principal); W19.XXXA Unspecified fall, initial encounter; L81.8 Other specified disorders of pigmentation; I10 Essential (primary) hypertension; G62.9 Polyneuropathy, unspecified | CPT/HCPCS: 99214; G0463 ==

== ENCOUNTER 2024-11-05 09:55 | Outpatient (AMB) | payer OTHER, SELFPAY ==
[2024-11-05 10:18] VITALS: BP 114/76; PULSE 66; RESP 18; TEMP 36.5; O2SAT 97; BMI 32.8
--- NOTE | 2024-11-05 10:18 | ORTHONT_ITS ---
Vital signs 11/05/24 10:18 Height 1.65 m Height Method Stated Weight 89.556 kg Weight Measurement Method Standing Scale BMI 32.8 BP 114/76 Blood Pressure Source Automatic Cuff Blood Pressure Location Right Upper Arm Position Sitting Respiration 18 Pulse 66 Pulse Source Monitor Temp 97.7 F Temp Source Temporal Artery Scan Pulse Oximetry (%) 97 Oxygen Delivery Method Room Air Med/Allergies Allergies & Medications Allergies No Known Allergies Allergy (Verified 11/05/24 10:20) Medication Reconciliation acetaminophen 650 mg tablet,extended release (Arthritis Pain Relief (acetaminophen) ER) 2 tab PO Q8HR PRN Pain 11/29/21 [History Confirmed 11/05/24] Held on 11/30/21. Instructions: Resume on 12/07/21. hdemjid-fwzzghbwbqnfk-urthtrou 250 mg-250 mg-65 mg tablet (Excedrin Migraine) 1 tab PO Q6H PRN migraine 11/29/21 [History Confirmed 11/05/24] fluticasone propionate 50 mcg/actuation nasal spray,suspension 1 ea intranasal QDAY 11/29/21 [History Confirmed 11/05/24] gabapentin 400 mg capsule 1 cap PO TID 11/29/21 [History Confirmed 11/05/24] famotidine 40 mg tablet 40 mg PO QDAY 08/10/24 [History Confirmed 11/05/24] atorvastatin 40 mg tablet 40 mg PO QDAY 10/08/24 [History Confirmed 11/05/24] meloxicam 7.5 mg tablet 7.5 mg PO QDAY #45 tabs 10/08/24 [Rx Confirmed 11/05/24] montelukast 10 mg tablet 10 mg PO QDAY 10/08/24 [History Confirmed 11/05/24] omeprazole 40 mg capsule,delayed release 40 mg PO QDAY 10/08/24 [History Confirmed 11/05/24] propranolol 40 mg tablet 40 mg PO BID 10/08/24 [History Confirmed 11/05/24] meloxicam 7.5 mg tablet 7.5 mg PO QDAY #45 tabs 11/05/24 [Rx] Exam Exam Patient is in no acute distress and is cooperative with the examination today. Breathing is nonlabored. Patient has a normal mood and affect. Bilateral extremities were evaluated and demonstrates sensation intact to light touch. Palpable pedal pulses are present. No significant edema is present. Bilateral hips were examined. The patient has no pain with log roll of the hips. Internal rotation to 30 degrees and external rotation to 30 degrees is painless. Negative FADIR. Right knee was examined today. The right knee is in reasonable alignment. Range of motion from 0-120 degrees. Knee is stable to varus and valgus as well as AP translation with <5mm. Patient has a negative McMurrays. There is no pain with patellofemoral compression and no crepitus noted. The knee is nontender to palpation. Left knee was examined today. The left knee is in varus alignment. Range of motion from 0-115 degrees. Knee is stable to varus and valgus as well as AP translation with <5mm. Patient has a negative McMurrays. There is no pain with patellofemoral compression and no crepitus noted. The knee is tender to palpation medially. He has skin abrasions below his tibial tubercle and on the distal one third tibia area. There appears to be skin abrasions that is superficial. This is completely healed now Bilateral knee x-rays demonstrates complete joint space narrowing medially Assessment and Plan Problem List (1) Arthritis of left knee: Status: Acute Plan: Patient is a 69-year-old male with left knee pain and left knee arthritis. He also has superficial skin abrasions which have healed. He would like bilateral knee injections today for his arthritis Recommend knee cortisone injections as patient would like to proceed with conservative treatment at this time. The risks and benefits of the procedure were reviewed with the patient and patient gave verbal consent to continue with the procedure. Procedure: performed by Dr. Murphy Using sterile technique the Bilateral knees were thoroughly prepped with alcohol, and approximately 1 cc of Kenalog 40 mg/mL and 4 cc of 1% lidocaine was injected into each knee without resistance into the medial tibial femoral joint space. The patient tolerated the procedure. Advanced Care Planning Discussion Advance care planning discussed with:: patient Office Procedures GNS Level of Care Nursing/Assessment Patient Status: Established Patient Nursing Assessment/Reassesment: Medication Reconciliation, Update PMH in EMR and Vital Signs Coordination of Care: Complex Care and Chronic Disease 1-5, Education Complex Pt/Fam, Consent,records obtained, informed consent, Results/Orders obtained and Staff clarify orders Special Needs: Language special needs Established Patient Charge Established Patient Point Assignment: 95 Established Patient Point Charge: EP Level 3 (80-115) MA Intake Visit Data Collection New Patient or Established: Established Patient (seen at [facility] within 3 years) Reason for Visit:: F/U XRAYS Seen by Clinical Staff ONLY (RN/MA): No Clothing Consultant Required: Yes PCP or OBGYN visit in last 3 months: Yes Hx Now: No Do You Feel Safe at Home: Yes Authorities Contacted: N/A Questionairres Past Medical History Past Medical History Have you ever been diagnosed with any of the following: Neurological Problems Cerebrovascular Accident (CVA): No Transient Ischemic Attacks (TIA): No Dementia: No Alzheimer's Disease: No Parkinson's Disease: No Brain Tumor: No Meningitis: No Seizures: No Epilepsy: No Multiple Sclerosis: No Cerebral Palsy: No Amyotrophic Lateral Sclerosis (ALS/Soniya Gehrig's): No Guillain-[place] Syndrome: No Spina Bifida: No Paralysis: No Peripheral Neuropathy: No Pickard's Palsy: No Subdural Hematoma: No Migraine: Yes Head Trauma: No Spinal Cord Injury: No Traumatic Brain Injury: No Cardiology Problems Myocardial Infarction: No Cardiac Arrhythmia: No Atrial Fibrillation: No Angina: No Heart Murmur: No Coronary Artery Disease: No Atherosclerotic Heart Disease: No Peripheral Vascular Disease: No Hypercholesterolemia: No Aneurysm: No Congestive Heart Failure: No Congenital Heart Disease: No Valvular Heart Disease: No Rheumatic Fever: No Cardiomyopathy: No Edema: No Pericarditis: No Cellulitis: No Deep Vein Thrombosis: No Hypertension: Yes Hypotension: No Varicose Veins: No Respiratory Problems Chronic Obstructive Pulmonary Disease (COPD): No Asthma: No Bronchitis: No Emphysema: No Pneumonia: No Pulmonary Fibrosis: No Tuberculosis: No Pulmonary Embolism: No Pulmonary Edema: No Sleep Apnea: No CPAP Dependent: No Respiratory Aspiration: No Dyspnea: No Orthopnea: No Hx Cough: No Cough: No Wheezing: No Chest Deformities: No Smoking: No Smoking Cessation Counseling: No Smoking Exposure: No Tobacco Use: No Clubbing: No Exposure to Respiratory Irritants: No Intubation: No Stomache/Intestinal Problems Liver Cancer: No Hepatitis: No Cirrhosis: No Pancreatic Cancer: No Pancreatitis: No Celiac Disease: No Gall Bladder Disease: No Gastrointestinal Bleed: No Esophageal Varices: No Andersen's Esophagus: No Colitis: No Ulcerative Colitis: No Diverticulitis: No Diverticulosis: No Ulcer: No Colorectal Cancer: No Irritable Bowel: No Crohn's Disease: No Obstructive Bowel: No Hiatal Hernia: Yes (RIGHT INGUINAL HERNIA) Hemorrhoids: No Gastroesophageal Reflux Disease: No Polyps: No Obesity: No Genital/Urinary Problems Chronic Kidney Disease: No Renal Disease: No Kidney Stones: No Polycystic Kidney Disease: No Neurogenic Bladder: No Inguinal Hernia: No Dialysis: No Prostate Cancer: No Benign Prostatic Hyperplasia: Yes Reproductive Problems Breast Cancer: No Fibroids: No Genital Herpes: No Gonorrhea: No Syphilis: No Testicular Cancer: No Musculoskeletal Problems Muscular Dystrophy: No Myasthenia Gravis: No Marfan's Syndrome: No Bone Cancer: No Arthritis: No Rheumatoid Arthritis: No Osteoporosis: No Degenerative Disk Disease: No Gout: No Scoliosis: No Carpal Tunnel Syndrome: No Fibromyalgia: Yes Fractures: No Degenerative Joint Disease: No Osteomyelitis: No Poliovirus: No Head,Eye,Nose,Throat Problems Cataracts: No Glaucoma: No Blind: No Retinal Detachment: No Macular Degeneration: No Chronic Ear Infections: No Deafness: No Eye Prosthesis: No Endocrine Problems Diabetes Mellitus Type 1: No Diabetes Mellitus Type 2: No Hypoglycemia: No [place]'s Syndrome: No Quail's Disease: No Hyperthyroidism: No Hypothyroidism: No Thyroid Cancer: No Parathyroid Disease: No Pituitary Disease: No Systemic Lupus Erythematosus: No Syndrome of Inappropriate Antidiuretic Hormone: No Adrenal Disease: No Graves' Disease: No Blood Problems Anemia: No Leukemia: No Hemophilia: No Thalassemia: No Sickle Cell Disease: No Clotting Problems: No Psychologic Problems Schizophrenia: No Recreational Drug Use: No Bipolar Disorder: No Depression: No Anxiety: No Behavior Problems: No Self-Mutilation: No Attention Deficit Disorder: No Attention Deficit Hyperactivity Disorder: No Depression: No Post Traumatic Stress Disorder: No Eating Disorder: No Other Problems Hospitalization: No Autoimmune Disease: No Down Syndrome: No Autism: No Developmental Delay: No Cosmetic Surgery: No Shingles: No Falls: No Blood Transfusions: No Blood Transfusion Reaction: No Anesthesia Reactions: No Organ Transplant: No Chemotherapy: No Radiation Therapy: No Hyperbaric Therapy: No MRSA: No VRSA: No Vancomycin-Resistant Enterococci: No Human Immunodeficiency Virus (HIV): No Chicken Pox: No Measles: No Mumps: No Rubella ([place] Measles): No Pertussis: No Klebsiella Pneumoniae Carbapenemase Producing Bacteria: No Clostridium Difficile: No Hepatitis A: No Hepatitis B: No Hepatitis C: No Communicable Disease: No Cancer: No Lung Cancer: No Surgical History Angioplasty: No Appendectomy: No Bariatric Surgery: No Breast Surgery: No Cancer Surgery: No Carotid Endarterectomy: No Cholecystectomy: No Colectomy: No Colostomy: No Coronary Artery Bypass Graft: No Valve Replacement: No Herniorrhaphy: No Total Hip Replacement: No Total Knee Replacement: No Pacemaker: No Sinus Surgery: No Splenectomy: No Thyroidectomy: No Ureter Stent: No Subjective Visit Visit for: follow up visit, knee and x-rays Immunization / Flu Flu Vaccine in the Last 12 Months: Yes Flu Vaccine Exclusion Criteria: Already Received History of Present Illness Chief complaint: left knee pain Patient is a 69-year-old male with left knee pain. He had a fall 2 months ago with abrasions on his lower tibia and below his knee. His prior wounds have healed completely since he stopped the Neosporin. He reports he has been having left knee pain for several months as well. It is on the medial aspect of his knee where he points to it. He would like bilateral knee injections today Pain Pain level (0-10): 6 Pain duration: ON AND OFF Pain location: inside (medial) Pain quality: dull, aching and shocking (KNEE TO LEG) Pain timing: increases with activity Associated signs & symptoms: none Ambulatory data Ambulatory device: none Treatments Improvement with previous injections: No Improvement with PT: No Improvement with NSAIDS: no Review of Systems Review of Systems: All systems negative unless otherwise noted in HPI.
== END 2024-11-05 10:53 | disposition home or self-care (01) ==
LOC: HODSRG 09:55
PROVIDERS: PCP Family Medicine; Referring Provider Family Medicine; Supervising Provider Orthopaedic Surgery Adult Reconstructive Orthopaedic Surgery; Visit Provider Orthopaedic Surgery Adult Reconstructive Orthopaedic Surgery
DX: M17.12 Unilateral primary osteoarthritis, left knee (principal); M25.562 Pain in left knee; I10 Essential (primary) hypertension; S80.819D Abrasion, unspecified lower leg, subsequent encounter; W19.XXXD Unspecified fall, subsequent encounter
CPT/HCPCS: 20610; 99213; J3301; J3490; G0463

== ENCOUNTER → 2024-11-13 | Outpatient (CLI) | payer OTHER, SELFPAY | END | disposition home or self-care (01) | PROVIDERS: PCP Nurse Practitioner Family; Referring Provider Nurse Practitioner Family; Visit Provider Physician Assistant | DX: S81.802A Unspecified open wound, left lower leg, initial encounter (principal); W19.XXXA Unspecified fall, initial encounter; L81.8 Other specified disorders of pigmentation; I10 Essential (primary) hypertension; G62.9 Polyneuropathy, unspecified | CPT/HCPCS: 99212; G0463 ==

== ENCOUNTER → 2025-01-08 | Outpatient (CLI) | payer OTHER, MEDICAID, SELFPAY ==
--- NOTE | 2025-01-08 12:13 | XR_ITS ---
Examination: PA lateral chest 2 views TECHNIQUE: Upright PA lateral chest 2 views Date and time: January 08, 2025, 12:22 PM, comparison April 28, 2024. INDICATIONS: Preop. FINDINGS: No significant cardiac enlargement. Minor atelectasis in the right middle lobe. No pneumonia or pulmonary edema. Moderate osteopenia. IMPRESSION: No active disease.
== END | disposition home or self-care (01) ==
LOC: CDIM 12:05
PROVIDERS: PCP Physician Assistant; Referring Provider Physician Assistant; Visit Provider Physician Assistant
DX: Z01.818 Encounter for other preprocedural examination (principal)
CPT/HCPCS: 71046

== ENCOUNTER → 2025-04-02 | Outpatient (BNVA) | payer OTHER, MEDICAID, SELFPAY | END | disposition home or self-care (01) | PROVIDERS: PCP Physician Assistant; Referring Provider Physician Assistant; Visit Provider Urology | DX: N52.9 Male erectile dysfunction, unspecified (principal); E66.9 Obesity, unspecified; Z68.33 Body mass index [BMI] 33.0-33.9, adult; I10 Essential (primary) hypertension | CPT/HCPCS: 81003; 99213; G0463 ==